=== PATIENT | male | born 1965 | race Caucasian/White ===

== ENCOUNTER → 2016-11-13 | Day surgery (SDC) | payer OTHER ==
[~2016-11-13] VITALS: Ht 180.3 cm; Wt 77.0 kg
[~2016-11-13] MED LIST: 0.9% Sodium Chloride 1,000 ML IV SCH; Sodium Chloride LOK Flush 10 mL Syringe IV PRN; fentaNYL-PF 50 mCg/mL 2 mL Inj IVPUSH PRN
[2016-11-13 10:31] VITALS: BP 138/77; PULSE 56; RESP 14; O2SAT 100
[2016-11-13 11:13] VITALS: BP 119/67; PULSE 52; O2SAT 100
[2016-11-13 11:24] VITALS: BP 112/64; PULSE 51; RESP 14; O2SAT 99
[2016-11-13 11:34] VITALS: BP 114/67; PULSE 53; RESP 14; O2SAT 99
--- NOTE | 2016-11-13 19:13 | ENDO ---
[address] [address] ENDOSCOPY PROCEDURE PATIENT: ERYN DAVIES : 1965 MR#: [id number] ADMIT: 11/13/2016 JOB ID: [id number] DATE: 11/13/2016 PRIMARY PROVIDER: Dell Celis M.D. PROCEDURE: 1. Colonoscopy. 2. Cold forceps polypectomy. INDICATIONS: A 51-year-old male who reports for colon cancer screening. EQUIPMENT: PCF H 180 AL. SEDATION: 1. 3 mg Versed. 2. 75 mcg fentanyl. COMPLICATIONS: None identified. BOWEL PREPARATION: Very adequate. PROCEDURE INFORMATION: After the risks and benefits were explained, written and verbal informed consent was obtained. The patient was brought into the endoscopy suite and placed into the left lateral decubitus position. Sedation was achieved using the above-stated medications with the addition of oxygen via nasal cannula. A digital rectal examination was accomplished. No significant pathology appreciated. The scope was introduced into the rectum and advanced to the cecum as identified by the appendiceal orifice and ileocecal valve. The scope was slowly withdrawn to carefully examine the mucosa for any defects or lesions. Retroflexed views were accomplished in the rectum. The colon was decompressed. The scope removed from the patient who tolerated the procedure well. FINDINGS: In the transverse colon, there was a small perhaps 4 mm polyp removed with cold forceps. No other significant pathology was appreciated throughout including retroflexed views apart from some internal hemorrhoids with hypertrophied anal papillae. ENDOSCOPIC DIAGNOSES: 1. Colon polyp. 2. Hemorrhoids. RECOMMENDATIONS: 1. Await histopathology. 2. If adenomatous features are confirmed, repeat colonoscopy in five years.
--- NOTE | 2016-11-15 16:20 | PATH ---
SURGICAL PATHOLOGY Attending Physician:Shiraz Clark CASE STATUS: Signed Out PATIENT NAME: ERYN DAVIES PID: [id number] : 1965 DATE COLLECTED:11/13/2016 22:08 SPECIMEN: Colon, Polyp CLINICAL HISTORY: SCREENING, COLON POLYP 1). TRANSVERSE COLON POLYP FINAL DIAGNOSIS: Transverse Colon, Polyp, Biopsy: Tubular adenoma. ICD10: D12.3 GROSS DESCRIPTION: The specimen is received in one formalin filled container labeled with the patient's name, sublabeled "transverse colon polyp" and consists of a 0.3 x 0.2 x 0.2 CM portion of tissue which is entirely submitted in one cassette. 11/14/2016DC ICD-9 CODES: CPT CODES: 1: 97620 Electronically Signed Out Kelly Mason MD [facility] Pathology [facility] [place] [address] Technical component performed at [facility], [address] [place] [address] Ave[address], [address]
== END | disposition home or self-care (01) ==
LOC: END 01:17
PROVIDERS: ATTEND Internal Medicine Gastroenterology
DX: Z12.11 Encounter for screening for malignant neoplasm of colon (principal); D12.3 Benign neoplasm of transverse colon; K64.9 Unspecified hemorrhoids; I73.9 Peripheral vascular disease, unspecified; G56.03 Carpal tunnel syndrome, bilateral upper limbs
CPT/HCPCS: 45380; G0500; J2250; J3010; J7030